=== PATIENT | male | born 1995 | race American Indian/Alaskan Native ===

== ENCOUNTER 2018-11-10 01:01 | Emergency (ER) | payer SELFPAY ==
[2018-11-10] MEDS ORDERED: Ondansetron PF 4 MG/2 ML Vial ONE (01:08)
== END 2018-11-10 04:53 | disposition home or self-care (01) ==
LOC: ERS 01:01
DX: F10.129 Alcohol abuse with intoxication, unspecified (principal)
CPT/HCPCS: 96374; J2405